=== PATIENT | female | born 1950 | race Caucasian/White ===

== ENCOUNTER 2016-12-01 11:01 | Inpatient (IN) | payer BC ==
[~2016-12-01] VITALS: Ht 162.6 cm; Wt 58.5 kg
[2016-12-01 11:26] VITALS: BP 108/62
[2016-12-01] MEDS ORDERED: LEVETIRACETAM500 MG ORAL (11:27)
[2016-12-01] MEDS ORDERED: BUPROPION XL150 MG ORAL (11:27)
[2016-12-01] MEDS ORDERED: GABAPENTIN600 MG ORAL (11:27)
[2016-12-01] MEDS ORDERED: SYNTHROID75 MCG ORAL (11:27)
[2016-12-01] MEDS ORDERED: AMLODIPINE BESYL5 MG ORAL (11:27)
[2016-12-01] MEDS ORDERED: ACYCLOVIR400 MG ORAL (11:27)
[2016-12-01] MEDS ORDERED: ZOLPIDEM TARTRA10 MG ORAL (11:27)
[2016-12-01] MEDS ORDERED: cefTRIAXone 2 GM in NS 110 ML IVPB ONE (11:30)
[2016-12-01] MEDS ORDERED: Vancomycin 1 GM in D5W 275 ML IVPB ONE (11:30)
[2016-12-01] MEDS ORDERED: Vancomycin 1 GM in NS 275 ML IV ONE (11:30)
[2016-12-01] MEDS ORDERED: Unasyn 3gm Inj IVPB ONE (11:30)
[2016-12-01 11:41] LABS: MEAN CORPUSCULAR HEMOGLOBIN 26.3 PG (27.0-31.0); MEAN CORPUSCULAR HGB CONC 31.7 G/DL (32.0-36.0); MEAN CORPUSCULAR VOLUME 83 FL (80-99); MEAN PLATELET VOLUME 6.2 FL (6.5-10.1); PLATELET COUNT 167 K/UL (150-450); RED BLOOD COUNT 4.32 M/UL (4.20-5.40); RED CELL DISTRIBUTION WIDTH 15.1 % (11.6-14.8)
[2016-12-01 11:50] LABS: WHITE BLOOD COUNT 0.9 K/UL (4.8-10.8)
[2016-12-01 11:53] LABS: TROPONIN I < 0.30 ng/mL (<=0.30)
[2016-12-01 11:56] LABS: ALANINE AMINOTRANSFERASE 11 U/L (3-33); ALBUMIN/GLOBULIN RATIO 1.6 (1.0-2.7); ANION GAP 14 (5-15); ASPARTATE AMINO TRANSFERASE 23 U/L (5-40); CALCIUM 8.6 mg/dL (8.6-10.2); CARBON DIOXIDE 23 mEQ/L (20-30); CHLORIDE 98 mEQ/L (98-107); CREATININE 0.8 mg/dL (0.5-0.9); GLOMERULAR FILTRATION RATE > 60 mL/min (>60); HEMOLYSIS 9; POTASSIUM 2.9 mEQ/L (3.4-4.9); SODIUM 135 mEQ/L (135-145); TOTAL PROTEIN 5.9 g/dL (6.6-8.7)
[2016-12-01] MEDS ORDERED: KCl 10% 20 mEq/15ml liquid ORAL ONE (12:00)
[2016-12-01] MEDS ORDERED: Meropenem 1 GM in NS 110 ML IVPB ONE (12:00)
[2016-12-01 12:07] LABS: CKMB < 1.5 ng/mL (< 3.8)
[2016-12-01] MEDS ORDERED: Meropenem 1gm vial ONE (12:07)
--- NOTE | 2016-12-01 12:08 | Emergency Room Report ---
History of Present Illness General Chief Complaint: Seizure Source: Patient Present Illness HPI 66YOF BIBEMS for seizure at home Aborted prior to EMS arrival Not given any meds by EMS Missed AM dose of Keppra today. Takes 1250mg BID "Big seizure" per daughter Per daughter, patient been feeling "weird" and "not normal" for 2 weeks Has been "back and forth to doctor" - was told "she has depression." Started on Welbutrin yesterday. Concern from Neurologist that it would "lower seizure threshold" but given anyway. Finished chem for B Cell lymphoma ?2-3 months prior. Daughter states bathroom and patient covered in feces this morning. Patient usually lives by herself, cares for herself. Went to work 2 days ago. Also on acyclovir for herpes of lips, eyes Allergies: Coded Allergies: No Known Allergies (Unverified , 12/01/16) Patient History Past Medical History: seizures, other - malignancy Past Surgical History: none Pertinent Family History: none Social History: Denies: alcohol use, drug use, smoking Now: No Immunizations: UTD Reviewed Nursing Documentation: PMH: Agreed, PSxH: Agreed Nursing Documentation-PMH Hx Cancer: Yes - Lyphoma; completed chemo two months ago History Of Psychiatric Problem: Yes - Depression Hx Seizures: Yes Review of Systems All Other Systems: negative except mentioned in HPI Physical Exam Vital Signs Date Time Temp Pulse Resp B/P Pulse Ox O2 Delivery O2 Flow Rate FiO2 12/01/16 10:46 103.1 75 16 108/62 99 Room Air Sp02 EP Interpretation: reviewed, abnormal General Appearance: normal inspection, well appearing, no apparent distress, alert, GCS 15, non-toxic, cachetic Head: normocephalic, atraumatic Eyes: bilateral eye EOMI, bilateral eye PERRL ENT: normal ENT inspection, hearing grossly normal, normal voice, other - Right side of neck cellulitis Neck: normal inspection, full range of motion, supple, no bony tend Respiratory: normal inspection, lungs clear, normal breath sounds, no respiratory distress, no retraction, no wheezing Cardiovascular #1: regular rate, rhythm, no edema Gastrointestinal: normal inspection, normal bowel sounds, non tender, soft, no guarding, no hernia Genitourinary: no CVA tenderness Musculoskeletal: normal inspection, back normal, normal range of motion, Parvez' s Sign negative Neurologic: normal inspection, alert, oriented x3, responsive, underwriting assistant III-XII nml as tested, motor strength/tone normal, speech normal Psychiatric: normal inspection, judgement/insight normal, mood/affect normal Skin: normal inspection, normal color, no rash Medical Decision Making Diagnostic Impression: Primary Impression: Seizure disorder Additional Impressions: Neutropenic fever Cellulitis, neck Hypokalemia ER Course Seizure disorder - Known - Missed AM dose of Keppra today - was given in ED - Witnessed seizure today. ?d/t missed dose vs neutropenic fever - No additional seizures in ED Neutropenic fever - Completed chemo 2-3 months prior for B cell lymphoma - Per IDSA reccs, meropenem 1gram given in ED - No meningismus - no focal neuro deficits - CXR: No PNA - Small cellulitis right neck from insect bite since last night. Unlikely source of infection. Hypokalemia - Repleted in ED Placed in isolation Endorsed to Dr Oakes for panel/tele admit EKG Diagnostic Results Rate: tachycardiac Rhythm: NSR ST Segments: no acute changes ASA given to the pt in ED: No Rhythm Strip Diag. Results EP Interpretation: yes Rate: 104 Rhythm: NSR, no PVC's, no ectopy Chest X-Ray Diagnostic Results Chest X-Ray Diagnostic Results : Chest X-Ray Ordered: Yes # of Views/Limited/Complete: 1 View Indication: Chest Pain EP Interpretation: Yes Interpretation: no consolidation, no effusion, no pneumothorax, no acute cardiopulmonary disease Impression: No acute disease Interpreting ER Provider: Electronically signed by Dr Mullins Last Vital Signs Date Time Temp Pulse Resp B/P Pulse Ox O2 Delivery O2 Flow Rate FiO2 12/01/16 11:26 103.1 102 16 108/62 99 Room Air Status: improved Disposition: ADMITTED INPATIENT Condition: Serious Referrals: NOT CHOSEN RUPA/,REFERRING (PCP) LA NENA MULLINS M.D. Dec 01, 2016 12:08
[2016-12-01 12:10] LABS: ANISOCYTOSIS 1+; BAND NEUTROPHILS % (MANUAL) 0 % (0-8); BASOPHILS % (MANUAL) 0 % (0-2); EOSINOPHILS % (MANUAL) 0 % (0-3); HYPOCHROMASIA 1+; LYMPHOCYTES % (MANUAL) 86 % (20-45); NEUTROPHILS % (MANUAL) 4 % (45-75); PLATELET ESTIMATE ADEQUATE; PLATELET MORPHOLOGY NORMAL; TOTAL CELLS COUNTED 100
[2016-12-01] MEDS ORDERED: Zolpidem 5mg tab ORAL PRN (13:30)
[2016-12-01] MEDS ORDERED: LORazepam Inj 2mg/ml 1ml IV PRN (13:30)
[2016-12-01] MEDS ORDERED: Piperacillin/Tazobactam 3.375 GM in D5W 110 ML IVPB SCH (14:00)
[2016-12-01 14:09] VITALS: BP 110/65
[2016-12-01] MEDS ORDERED: TBO-Filgrastim 300 mcg/0.5ml SQ SCH (15:00)
[2016-12-01] MEDS ORDERED: Zosyn 4.5gm q8h **Extended infusion IVPB SCH ×2 (15:00)
[2016-12-01] MEDS: Vancomycin 1250mg/D5W 250ml IVPB SCH (15:13)
[2016-12-01 16:00] VITALS: BP 115/68
[2016-12-01] MEDS: Zosyn 4.5gm q8h **Extended infusion IVPB SCH ×2 (18:24)
[2016-12-01 20:00] VITALS: BP 120/74
--- NOTE | 2016-12-01 21:17 | History and Physical Report ---
DATE OF ADMISSION: 12/01/2016 CHIEF COMPLAINT: Seizures and neutropenic fever. HISTORY OF PRESENT ILLNESS: The patient is a very pleasant 66-year-old female. She has a prior history of breast and large B-cell lymphoma. Most recent chemo was completed in August for her lymphoma. She also has a history of seizure disorder and hypothyroidism as well as a recent history of HSV on the lips. She was brought in by family members after she had a seizure this morning. According to family members, she has been very weak for the last several days. She apparently saw a psychiatrist and started on Wellbutrin. She was late taking her Keppra this morning and had a seizure. On evaluation in the emergency room, the patient was noted to be febrile to 103 degrees. She was also noted to be neutropenic. She had a potassium of 2.9. She has been pancultured and started on broad-spectrum antibiotic therapy and is now admitted for further inpatient evaluation and care. The patient denies any cough. She has had no diarrhea. PAST MEDICAL HISTORY: As above. PAST SURGICAL HISTORY: Lumpectomy and hysterectomy. MEDICATIONS: Reconciled and reviewed. ALLERGIES: None. FAMILY HISTORY: Significant for history of pancreatic cancer, coronary artery disease, chronic kidney disease, diabetes and lymphoma. REVIEW OF SYSTEMS: General: Positive fevers. No chills. HEENT: No headaches or visual changes. Cardiopulmonary: Positive right lower chest pain. No shortness of breath. Gastrointestinal: No nausea or vomiting. Genitourinary: No urgency or frequency. Musculoskeletal: No joint pain or swelling. Neurologic: Positive history of seizures. PHYSICAL EXAMINATION: VITAL SIGNS: Temperature initially was 103.1 degrees, pulse of 102, and respirations 16. GENERAL: The patient is well-developed female in no apparent distress. He is awake, alert, and oriented x4. HEENT: Pupils are equal, round, and reactive to light. Oropharynx is clear. There is a crusting lesion on the lower lip as well as a small blister underneath the neck. There is a small amount of erythema and warmth. NECK: Supple. HEART: Regular rate and rhythm. LUNGS: Clear. ABDOMEN: Soft, nontender and nondistended. EXTREMITIES: No clubbing, cyanosis or edema. LABORATORY AND DIAGNOSTIC DATA: Sodium 135, potassium 2.9, chloride 98, bicarbonate 23, BUN 22, and creatinine 0.8. White count was 0.9, hemoglobin 11 and hematocrit 35, and neutrophils were 400. Chest x-ray was reported as clear. ASSESSMENT: This is a pleasant female admitted with neutropenic fevers and seizures. Seizures may be related to recent starting of Wellbutrin. 1. Neutropenic fevers. 2. Herpes simplex virus on the lips, questionable lesion on the neck versus cellulitis. 3. Dehydration. 4. Hypokalemia. 5. Hypothyroidism. 6. Prior history of breast cancer. PLAN: 1. Resume Keppra. 2. Ativan as needed. 3. Aggressive hydration. 4. Broad-spectrum antibiotic therapy. 5. Followup cultures. 6. ID consultation. 7. Hematology/Oncology consultations. 8. Neurology consultation will be obtained. Maynor Oakes M.D. DR: LIZA JOB#: [id number] CC:
[2016-12-02 00:09] VITALS: BP 126/72
[2016-12-02] MEDS: Zosyn 4.5gm q8h **Extended infusion IVPB SCH ×6 (02:23→18:00)
[2016-12-02] MEDS ORDERED: Zolpidem 5mg tab ORAL ONE ×2 (03:15→23:30)
[2016-12-02 04:30] VITALS: BP 119/74
[2016-12-02 08:03] VITALS: BP 119/73
--- NOTE | 2016-12-02 08:07 | General Progress Note ---
Assessment/Plan Problem List: (1) Hypokalemia ICD Codes: E87.6 - Hypokalemia SNOMED: 86263451 (2) Seizure disorder ICD Codes: G40.909 - Epilepsy, unspecified, not intractable, without status epilepticus SNOMED: 992527667 (3) Cellulitis, neck ICD Codes: L03.221 - Cellulitis of neck SNOMED: 72634642 (4) Neutropenic fever ICD Codes: D70.9 - Neutropenia, unspecified; R50.81 - Fever presenting with conditions classified elsewhere SNOMED: 987344371 Assessment/Plan iv abx follow up cultures ID and optho called ct head and neck- r/o abscess sinusitis neuopgen sz rx neuro eval called Subjective ROS Limited/Unobtainable: No Constitutional: Reports: fever, malaise, weakness HEENT: Reports: no symptoms Cardiovascular: Reports: no symptoms Respiratory: Reports: no symptoms Gastrointestinal/Abdominal: Reports: no symptoms Genitourinary: Reports: no symptoms Neurologic/Psychiatric: Reports: seizure Endocrine: Reports: no symptoms Hematologic/Lymphatic: Reports: anemia Allergies: Coded Allergies: No Known Allergies (Unverified , 12/01/16) All Systems: reviewed and negative except above Subjective no events. c/o neck pain. ?right facial and neck swelling. dtr at the bedside Objective Last 24 Hour Vital Signs Date Time Temp Pulse Resp B/P Pulse Ox O2 Delivery O2 Flow Rate FiO2 12/02/16 04:30 97.0 97 20 119/74 97 Room Air 12/02/16 04:00 100 12/02/16 00:09 98.0 88 20 126/72 99 Room Air 12/02/16 00:00 83 12/01/16 20:00 85 12/01/16 20:00 98.0 86 20 120/74 98 Room Air 12/01/16 16:00 96.8 84 18 115/68 95 Room Air 12/01/16 16:00 80 12/01/16 14:10 97.8 82 16 110/65 100 Room Air 12/01/16 14:09 97.8 82 16 110/65 100 Room Air 12/01/16 12:51 97.8 12/01/16 11:26 103.1 102 16 108/62 99 Room Air 12/01/16 10:51 75 16 Room Air 12/01/16 10:46 103.1 75 16 108/62 99 Room Air Intake and Output 12/01/16 12/02/16 19:00 07:00 Intake Total 678.334 ml Balance 678.334 ml Intake Oral 120 ml IV Total 558.334 ml # Voids 2 1 Laboratory Tests 12/01/16 11:00: White Blood Count 0.9*L, Red Blood Count 4.32, Hemoglobin 11.3L, Hematocrit 35.8L, Mean Corpuscular Volume 83, Mean Corpuscular Hemoglobin 26.3L, Mean Corpuscular Hemoglobin Concent 31.7L, Red Cell Distribution Width 15.1H, Platelet Count 167, Mean Platelet Volume 6.2L, Neutrophils (%) (Auto) , Lymphocytes (%) (Auto) , Monocytes (%) (Auto) , Eosinophils (%) (Auto) , Basophils (%) (Auto) , Differential Total Cells Counted 100, Neutrophils % ( Manual) 4L, Lymphocytes % (Manual) 86H, Monocytes % (Manual) 10, Eosinophils % ( Manual) 0, Basophils % (Manual) 0, Band Neutrophils 0, Platelet Estimate Adequate, Platelet Morphology Normal, Hypochromasia 1+, Anisocytosis 1+, Sodium Level 135, Potassium Level 2.9L, Chloride Level 98, Carbon Dioxide Level 23, Anion Gap 14, Blood Urea Nitrogen 22, Creatinine 0.8, Estimat Glomerular Filtration Rate > 60, Glucose Level 153H, Lactic Acid Level 1.60, Calcium Level 8.6, Total Bilirubin 0.6, Aspartate Amino Transf (AST/SGOT) 23, Alanine Aminotransferase (ALT/SGPT) 11, Alkaline Phosphatase 55, Total Creatine Kinase 211H, Creatine Kinase MB < 1.5, Creatine Kinase MB Relative Index , Troponin I < 0.30, Total Protein 5.9L, Albumin 3.7, Globulin 2.2, Albumin/Globulin Ratio 1.6 Height (Feet): 5 Height (Inches): 4.00 Weight (Pounds): 129 General Appearance: WD/WN, alert EENT: other - left Neck: tenderness Cardiovascular: normal rate, regular rhythm Respiratory/Chest: chest wall non-tender, lungs clear, normal breath sounds, no respiratory distress Abdomen: normal bowel sounds, non tender, soft, no organomegaly Edema: no edema noted Arm (L), no edema noted Arm (R), no edema noted Leg (L), no edema noted Leg (R), no edema noted Pedal (L), no edema noted Pedal (R), no edema noted Generalized Neurologic: alert, oriented x 3, responsive ALAN FAUSTIN Dec 02, 2016 08:07
[2016-12-02] MEDS ORDERED: D5W IV SCH (10:00)
[2016-12-02] MEDS ORDERED: ACYCLOVIR IV SCH (10:00)
[2016-12-02 10:25] LABS: MEAN CORPUSCULAR HEMOGLOBIN 27.5 PG (27.0-31.0); MEAN CORPUSCULAR HGB CONC 33.1 G/DL (32.0-36.0); MEAN CORPUSCULAR VOLUME 83 FL (80-99); MEAN PLATELET VOLUME 6.1 FL (6.5-10.1); PLATELET COUNT 168 K/UL (150-450); RED CELL DISTRIBUTION WIDTH 14.9 % (11.6-14.8)
[2016-12-02 11:13] LABS: ALANINE AMINOTRANSFERASE 14 U/L (3-33); ALBUMIN/GLOBULIN RATIO 1.4 (1.0-2.7); ANION GAP 12 (5-15); ASPARTATE AMINO TRANSFERASE 21 U/L (5-40); CALCIUM 8.3 mg/dL (8.6-10.2); CARBON DIOXIDE 22 mEQ/L (20-30); CHLORIDE 102 mEQ/L (98-107); CREATININE 0.8 mg/dL (0.5-0.9); GLOMERULAR FILTRATION RATE > 60 mL/min (>60); HEMOLYSIS 3; POTASSIUM 3.2 mEQ/L (3.4-4.9); SODIUM 136 mEQ/L (135-145); TOTAL PROTEIN 5.7 g/dL (6.6-8.7)
[2016-12-02 11:33] LABS: ANISOCYTOSIS 1+; BAND NEUTROPHILS % (MANUAL) 0 % (0-8); BASOPHILS % (MANUAL) 0 % (0-2); EOSINOPHILS % (MANUAL) 1 % (0-3); HYPOCHROMASIA 1+; LYMPHOCYTES % (MANUAL) 80 % (20-45); NEUTROPHILS % (MANUAL) 7 % (45-75); PLATELET ESTIMATE ADEQUATE; PLATELET MORPHOLOGY NORMAL; TOTAL CELLS COUNTED 100
[2016-12-02 11:34] VITALS: BP 102/65
--- NOTE | 2016-12-02 12:16 | Diagnostic Imaging Report ---
Indication: SOB Technique: One view of the chest Comparison: none Findings: Lungs and pleural spaces are clear. The heart size is upper limits normal. There are bilateral axillary surgical clips. Impression: No acute process
[2016-12-02] MEDS: Acyclovir 200mg Cap ORAL SCH ×2 (13:55→21:36)
[2016-12-02] MEDS: Fluconazole 100mg tab ORAL SCH (13:55)
--- NOTE | 2016-12-02 14:31 | Consultation ---
DATE OF CONSULTATION: 12/02/2016 INFECTIOUS DISEASE CONSULTATION REFERRING PHYSICIAN: Maynor Oakes M.D. REASON FOR CONSULTATION: Neutropenic fever. HISTORY OF PRESENTING ILLNESS: This is a 66-year-old lady with history of lymphoma, breast cancer, status post chemotherapy, radiation therapy, and lumpectomy, who comes in with seizures. She has a prior history of seizure disorder. She was also noticed to have neutropenic fevers and an Infectious Diseases consultation has been obtained for antibiotics. PAST MEDICAL HISTORY: 1. History of breast cancer, status post lumpectomy. 2. History of large cell lymphoma, status post chemotherapy and radiation therapy. 3. History of hysterectomy. 4. History of seizures. SOCIAL HISTORY: She does not smoke, drink, or use drugs. FAMILY HISTORY: Positive for lymphoma in her mother. Pancreatic cancer in her grandmother. Coronary artery disease in her father. REVIEW OF SYSTEMS: Respiratory: She had fever and chills. No cough. No shortness of breath or chest pain. Cardiac: No chest pain. No palpitations. No dizziness. No syncope. Gastrointestinal: No nausea. No vomiting. No abdominal pain. No diarrhea. Musculoskeletal: She had seizures. MEDICATIONS: As an inpatient, she is on: 1. Ambien. 2. Granix. 3. Acyclovir IV. 4. Amlodipine. 5. Protonix. 6. Levothyroxine. 7. Keppra. 8. Gabapentin. 9. Zosyn. 10. IV vancomycin. 11. Ativan. ALLERGIES: No known drug allergies. PHYSICAL EXAMINATION: VITAL SIGNS: Temperature of 97.2, T-max of 103.1, pulse of 98, respiratory rate of 18, blood pressure 119/97, and O2 saturation of 98%. HEENT: Pupils equally reactive to light and accommodation. Mouth, thrush noted with hyperpigmented lesion on the lower lip. NECK: Supple. No adenopathy. No JVD. CARDIOVASCULAR: Regular rate and rhythm. No murmurs. LUNGS: Clear to auscultation bilaterally. No crackles. No wheezes. ABDOMEN: Soft and nontender. No organomegaly. EXTREMITIES: No cyanosis, no clubbing, no edema. LABORATORY AND DIAGNOSTIC DATA: White count of 1, hemoglobin 10.7, hematocrit 32.4, MCV 83, and platelet count of 168,000. Sodium 136, potassium 3.2, chloride 102, bicarb 22, BUN 21, creatinine 0.8, glucose 144, and calcium 8.3. Total bilirubin 0.5. AST 21, ALT 14, and alkaline phosphatase 50. Total protein 5.7. Albumin 3.4. CK of 211. CK-MB of less than 1.5. Troponin less than 0.3. Her chest x-ray showed no consolidation. ASSESSMENT: This is a 66-year-old lady with history of breast cancer and lymphoma, who comes in with. 1. Neutropenic fever. We would like to rule out sepsis as a possibility. 2. History of seizures. 3. We would like to rule out urinary tract infection as a possibility. 4. Thrush. 5. Herpes of the lip. PLAN: 1. We will follow up on blood cultures. 2. We will order urine cultures. 3. We will continue vancomycin and Zosyn. 4. We will stop the IV acyclovir and change to p.o. acyclovir. 5. We will start the patient on fluconazole. 6. We will follow up cultures and adjust antibiotics accordingly. I would like to thank, Dr. Oakes, for this consultation. Dino Perales M.D. DR: YOUSUF JOB#: [id number] CC: Maynor Oakes M.D.
[2016-12-02] MEDS: Vancomycin 1250mg/D5W 250ml IVPB SCH (15:00)
[2016-12-02 16:15] VITALS: BP 114/74
[2016-12-02] MEDS ORDERED: NS 275ml ONE (16:26)
[2016-12-02] MEDS ORDERED: Tubing IV Secondary IV ONE (16:26)
--- NOTE | 2016-12-02 16:55 | Diagnostic Imaging Report ---
Indication: Headaches. History breast carcinoma and mastectomy Technique: sagittal T1 fast spin echo, axial T1 and T2 FLAIR PROPELLER, axial T2 FS PROPELLER, T2* GRE, axial diffusion weighted images, post contrast axial and coronal T1 FLAIR PROPELLER images. ADC and exponential ADC maps generated Comparison: None Findings: Vascular flow voids are preserved. The distal internal carotid arteries are ectatic.. No abnormal areas of restricted diffusion to suggest acute infarction. No acute hemorrhage or edema. No mass effect nor midline shift. No abnormal contrast enhancement. There is mild age-related enlargement of the ventricles and extra axial CSF spaces. There is calvarial hyperostosis.. There is ethmoid sinus disease bilaterally. Impression: Mild age-related changes. Negative for acute intracranial bleed, mass effect, infarct, or contrast enhancing lesion
--- NOTE | 2016-12-02 17:06 | Diagnostic Imaging Report ---
Indication: ABSCESS Technique: IV administration nonionic contrast Spiral acquisitions obtained through the neck Multiplanar reconstructions were generated. Total dose length product 425 mGycm. CTDIvol(s) 17, 48, 8 mGy. Radiation dose was minimized using automated exposure control Comparison: None Findings: There is bilateral maxillary sinus disease. Streak artifact from dental amalgam obscures much of the oropharynx, as well as within the facial soft tissues at this level.. No definite nasopharyngeal, oropharyngeal abnormality demonstrated. Unremarkable hypopharynx. Unremarkable larynx and trachea. Bilateral internal jugular veins are patent. In the visualized portions of the face and neck, and no significant soft tissue edema, mass, or abscess demonstrated. A few surgical clips are seen in the right side of the neck. The parotid glands appear unremarkable. The submandibular glands are unusually small. No cervical mass or adenopathy demonstrated. No supraclavicular mass or adenopathy. Some scarring is seen in the left lung apex. The aorta is somewhat ectatic and tortuous. Great neck vessels are also a somewhat tortuous and ectatic. The bones are unremarkable. Impression: No definite acute or significant abnormality. No findings to explain stated clinical history right neck and facial swelling Sinus disease Evidence of prior right neck surgery to correlate with surgical history Unusually small submandibular glands. Significance uncertain. The CT scanner at [facility] is accredited by the [employer] and the scans are performed using protocols designed to limit radiation exposure to as low as reasonably achievable to attain images of sufficient resolution adequate for diagnostic evaluation.
[2016-12-02 20:00] VITALS: BP 115/70
[2016-12-02] MEDS ORDERED: Zolpidem 5mg tab ORAL PRN (21:00)
[2016-12-02] MEDS ORDERED: TBO-Filgrastim 300 mcg/0.5ml SQ SCH (21:00)
[2016-12-02 21:55] LABS: APPEARANCE,URINE CLEAR; KETONES,URINE NEGATIVE (NEGATIVE); LEUKOCYTE ESTERASE ,URINE NEGATIVE (NEGATIVE); NITRITE,URINE NEGATIVE (NEGATIVE); PH,URINE 8 (4.5-8.0); PROTEIN,URINE 2+ (NEGATIVE); UROBILINOGEN,URINE NORMAL MG/DL (0.0-1.0)
[2016-12-02 22:05] LABS: BACTERIA,URINE FEW /HPF; RBC,URINE 0-2 /HPF (0 - 2); SQUAMOUS EPITHELIAL CELL,UR FEW /LPF (NONE/OCC); WBC,URINE 0-2 /HPF (0 - 2)
[2016-12-03] VITALS: BP 115/71
[2016-12-03] MEDS: Zosyn 4.5gm q8h **Extended infusion IVPB SCH ×4 (01:55→09:53)
[2016-12-03] MEDS: Acyclovir 200mg Cap ORAL SCH ×2 (06:16→13:45)
[2016-12-03 06:28] LABS: MEAN CORPUSCULAR HEMOGLOBIN 27.1 PG (27.0-31.0); MEAN CORPUSCULAR HGB CONC 32.3 G/DL (32.0-36.0); MEAN CORPUSCULAR VOLUME 84 FL (80-99); MEAN PLATELET VOLUME 6.2 FL (6.5-10.1); PLATELET COUNT 153 K/UL (150-450); RED BLOOD COUNT 3.71 M/UL (4.20-5.40); RED CELL DISTRIBUTION WIDTH 15.5 % (11.6-14.8)
[2016-12-03 07:21] LABS: WHITE BLOOD COUNT 1.1 K/UL (4.8-10.8)
[2016-12-03 08:00] VITALS: BP 120/70
--- NOTE | 2016-12-03 08:42 | General Progress Note ---
Assessment/Plan Problem List: (1) Hypokalemia ICD Codes: E87.6 - Hypokalemia SNOMED: 17115121 (2) Seizure disorder ICD Codes: G40.909 - Epilepsy, unspecified, not intractable, without status epilepticus SNOMED: 783196956 (3) Cellulitis, neck ICD Codes: L03.221 - Cellulitis of neck SNOMED: 74002786 (4) Neutropenic fever ICD Codes: D70.9 - Neutropenia, unspecified; R50.81 - Fever presenting with conditions classified elsewhere SNOMED: 480202780 Status: stable, progressing Assessment/Plan iv abx follow up cultures laxatives neuopgen sz rx neuro eval called on waiting list for bed at [facility] Subjective ROS Limited/Unobtainable: No Constitutional: Reports: malaise, weakness HEENT: Reports: no symptoms Cardiovascular: Reports: no symptoms Respiratory: Reports: no symptoms Gastrointestinal/Abdominal: Reports: poor appetite Genitourinary: Reports: no symptoms Neurologic/Psychiatric: Reports: seizure Endocrine: Reports: no symptoms Hematologic/Lymphatic: Reports: anemia Allergies: Coded Allergies: No Known Allergies (Unverified , 12/01/16) All Systems: reviewed and negative except above Subjective no events. mri brain negative. CT head/neck negative. no szs. weak. Objective Last 24 Hour Vital Signs Date Time Temp Pulse Resp B/P Pulse Ox O2 Delivery O2 Flow Rate FiO2 12/03/16 04:00 90 12/03/16 00:00 97.0 81 20 115/71 95 Room Air 12/03/16 00:00 80 12/02/16 20:00 98.6 94 21 115/70 97 Room Air 12/02/16 20:00 89 12/02/16 16:15 98.4 88 18 114/74 97 Room Air 12/02/16 16:00 88 12/02/16 12:00 105 12/02/16 11:34 100.3 100 18 102/65 96 Room Air Intake and Output 12/02/16 12/03/16 19:00 07:00 Intake Total 1027.5 ml 1082.5 ml Output Total 0 ml Balance 1027.5 ml 1082.5 ml Intake Oral 600 ml IV Total 427.5 ml 1082.5 ml Output Urine Total 0 ml # Voids 2 1 # Bowel Movements 1 Laboratory Tests 12/02/16 10:05: White Blood Count 1.0*L, Red Blood Count 3.90L, Hemoglobin 10.7L, Hematocrit 32.4L, Mean Corpuscular Volume 83, Mean Corpuscular Hemoglobin 27.5, Mean Corpuscular Hemoglobin Concent 33.1, Red Cell Distribution Width 14.9H, Platelet Count 168, Mean Platelet Volume 6.1L, Neutrophils (%) (Auto) , Lymphocytes (%) (Auto) , Monocytes (%) (Auto) , Eosinophils (%) (Auto) , Basophils (%) (Auto) , Differential Total Cells Counted 100, Neutrophils % ( Manual) 7L, Lymphocytes % (Manual) 80H, Monocytes % (Manual) 12H, Eosinophils % (Manual) 1, Basophils % (Manual) 0, Band Neutrophils 0, Platelet Estimate Adequate, Platelet Morphology Normal, Hypochromasia 1+, Anisocytosis 1+, Sodium Level 136, Potassium Level 3.2L, Chloride Level 102, Carbon Dioxide Level 22, Anion Gap 12, Blood Urea Nitrogen 21, Creatinine 0.8, Estimat Glomerular Filtration Rate > 60, Glucose Level 144H, Calcium Level 8.3L, Total Bilirubin 0.5, Aspartate Amino Transf (AST/SGOT) 21, Alanine Aminotransferase (ALT/SGPT) 14, Alkaline Phosphatase 50, Total Protein 5.7L, Albumin 3.4L, Globulin 2.3, Albumin/Globulin Ratio 1.4 12/02/16 20:25: Urine Color Pale yellow, Urine Appearance Clear, Urine pH 8, Urine Specific Sterling 1.010, Urine Protein 2+H, Urine Glucose (UA) Negative, Urine Ketones Negative, Urine Occult Blood 1+H, Urine Nitrite Negative, Urine Bilirubin Negative, Urine Urobilinogen Normal, Urine Leukocyte Esterase Negative, Urine RBC 0-2, Urine WBC 0-2, Urine Squamous Epithelial Cells Few, Urine Bacteria Few 12/03/16 04:35: White Blood Count 1.1*L, Red Blood Count 3.71L, Hemoglobin 10.0L, Hematocrit 31.0L, Mean Corpuscular Volume 84, Mean Corpuscular Hemoglobin 27.1, Mean Corpuscular Hemoglobin Concent 32.3, Red Cell Distribution Width 15.5H, Platelet Count 153, Mean Platelet Volume 6.2L, Neutrophils (%) (Auto) , Lymphocytes (%) (Auto) , Monocytes (%) (Auto) , Eosinophils (%) (Auto) , Basophils (%) (Auto) , Neutrophils % (Manual) [Pending], Lymphocytes % (Manual) [Pending], Platelet Estimate [Pending], Platelet Morphology [Pending] Height (Feet): 5 Height (Inches): 4.00 Weight (Pounds): 129 General Appearance: WD/WN, alert EENT: PERRL/EOMI Neck: supple, other - erythema under chin Cardiovascular: normal rate Respiratory/Chest: chest wall non-tender, lungs clear, normal breath sounds Abdomen: normal bowel sounds, non tender, soft, no organomegaly Edema: no edema noted Arm (L), no edema noted Arm (R), no edema noted Leg (L), no edema noted Leg (R), no edema noted Pedal (L), no edema noted Pedal (R), no edema noted Generalized Neurologic: alert, oriented x 3, responsive ALAN FAUSTIN Dec 03, 2016 08:42
[2016-12-03] MEDS ORDERED: Milk of Magnesia 30ml Ud ORAL PRN (09:00)
[2016-12-03] MEDS ORDERED: Docusate 250mg cap ORAL SCH (09:00)
[2016-12-03] MEDS: Fluconazole 100mg tab ORAL SCH (09:39)
[2016-12-03 10:18] LABS: BASOPHILS % (MANUAL) 1 % (0-2); EOSINOPHILS % (MANUAL) 3 % (0-3); LYMPHOCYTES % (MANUAL) 59 % (20-45); NEUTROPHILS % (MANUAL) 5 % (45-75); TOTAL CELLS COUNTED 100
[2016-12-03 10:20] LABS: BAND NEUTROPHILS % (MANUAL) 0 % (0-8); PLATELET ESTIMATE ADEQUATE; PLATELET MORPHOLOGY NORMAL
[2016-12-03 10:21] LABS: ANISOCYTOSIS 1+; BURR CELLS 1+
--- NOTE | 2016-12-03 11:36 | Infectious Diseases Prog Note ---
Assessment/Plan Assessment/Plan antibiotics : vancomycin iv, zosyn, acyclovir, fluconazole A 1. neck cellulitis 2. breast cancer 3. lymphoma 4. neutropenia 5. fever improving 6. herpes of lip 7. thrush P 1. continue vancomycin iv, zosyn, acyclovir, fluconazole 2. will follow up cultures Subjective Constitutional: Denies: chills, fever Respiratory: Reports: dry cough - decreasing, Denies: shortness of breath Gastrointestinal/Abdominal: Denies: diarrhea, nausea, vomiting Musculoskeletal: Reports: pain Allergies: Coded Allergies: No Known Allergies (Unverified , 12/01/16) Objective Vital Signs Last 24 Hour Vital Signs Date Time Temp Pulse Resp B/P Pulse Ox O2 Delivery O2 Flow Rate FiO2 12/03/16 09:41 120 70/94 12/03/16 08:00 99.7 94 18 120/70 97 Room Air 12/03/16 08:00 96 12/03/16 04:00 90 12/03/16 00:00 97.0 81 20 115/71 95 Room Air 12/03/16 00:00 80 12/02/16 20:00 98.6 94 21 115/70 97 Room Air 12/02/16 20:00 89 12/02/16 16:15 98.4 88 18 114/74 97 Room Air 12/02/16 16:00 88 12/02/16 12:00 105 12/02/16 11:34 100.3 100 18 102/65 96 Room Air Height (Feet): 5 Height (Inches): 4.00 Weight (Pounds): 129 HEENT: other - lower lip hyperpigmented lesion, thrush, neck erythema Respiratory/Chest: lungs clear Cardiovascular: normal rate, regular rhythm, no gallop/murmur Abdomen: soft, non tender Extremities: no edema Microbiology Date/Time Source Procedure Growth Status 12/01/16 11:10 Blood Blood Culture - Preliminary NO GROWTH AFTER 24 HOURS Resulted 12/01/16 11:00 Blood Blood Culture - Preliminary NO GROWTH AFTER 24 HOURS Resulted Laboratory Tests Test 12/02/16 20:25 12/03/16 04:35 Urine Color Pale yellow Urine Appearance Clear Urine pH 8 (4.5-8.0) Urine Specific Midnight 1.010 (1.005-1.035) Urine Protein 2+ (NEGATIVE) H Urine Glucose (UA) Negative (NEGATIVE) Urine Ketones Negative (NEGATIVE) Urine Occult Blood 1+ (NEGATIVE) H Urine Nitrite Negative (NEGATIVE) Urine Bilirubin Negative (NEGATIVE) Urine Urobilinogen Normal MG/DL (0.0-1.0) Urine Leukocyte Esterase Negative (NEGATIVE) Urine RBC 0-2 /HPF (0 - 2) Urine WBC 0-2 /HPF (0 - 2) Urine Squamous Epithelial Cells Few /LPF (NONE/OCC) Urine Bacteria Few /HPF (NONE) White Blood Count 1.1 K/UL (4.8-10.8) *L Red Blood Count 3.71 M/UL (4.20-5.40) L Hemoglobin 10.0 G/DL (12.0-16.0) L Hematocrit 31.0 % (37.0-47.0) L Mean Corpuscular Volume 84 FL (80-99) Mean Corpuscular Hemoglobin 27.1 PG (27.0-31.0) Mean Corpuscular Hemoglobin Concent 32.3 G/DL (32.0-36.0) Red Cell Distribution Width 15.5 % (11.6-14.8) H Platelet Count 153 K/UL (150-450) Mean Platelet Volume 6.2 FL (6.5-10.1) L Neutrophils (%) (Auto) % (45.0-75.0) Lymphocytes (%) (Auto) % (20.0-45.0) Monocytes (%) (Auto) % (1.0-10.0) Eosinophils (%) (Auto) % (0.0-3.0) Basophils (%) (Auto) % (0.0-2.0) Differential Total Cells Counted 100 Neutrophils % (Manual) 5 % (45-75) L Lymphocytes % (Manual) 59 % (20-45) H Monocytes % (Manual) 32 % (1-10) H Eosinophils % (Manual) 3 % (0-3) Basophils % (Manual) 1 % (0-2) Band Neutrophils 0 % (0-8) Platelet Estimate Adequate Platelet Morphology Normal Anisocytosis 1+ Gloria Cells 1+ CINDY MELGAR Dec 03, 2016 11:36
[2016-12-03 12:00] VITALS: BP 121/76
[2016-12-03] MEDS: Vancomycin 1250mg/D5W 250ml IVPB SCH (14:48)
[2016-12-03 16:00] VITALS: BP 123/79
[2016-12-03] MEDS ORDERED: NS 275ml ONE (16:59)
--- NOTE | 2016-12-04 08:48 | Cardiology Report ---
APPROVED REPORT EKG Measurement Heart [id number] Sinus tachycardia Possible Left atrial enlargement Low voltage QRS Borderline ECG
[2016-12-04 10:28] LABS: OTHERS PATHOLOGIST COMMENT
--- NOTE | 2016-12-05 13:02 | Discharge Summary ---
Discharge Summary Hospital Course Date of Admission Dec 01, 2016 at 13:44 Date of Discharge Dec 03, 2016 at 17:00 Admitting Diagnosis Neutropenic Fever HPI Sarah Landon is a 66 year old female who was admitted on Dec 01, 2016 at 13: 44 for Neutropenic Fever Hospital Course [id number] Discharge Discharge Disposition Patient was discharged to Acute Care Facility(02) Discharge Diagnoses: Avril Rodas NP Dec 05, 2016 13:02
--- NOTE | 2016-12-06 01:01 | Discharge Summary 2 SIG ---
DATE OF ADMISSION: 12/01/2016 DATE OF DISCHARGE: 12/03/2016 RETAIL DELIVERY DRIVER: Dino Perales M.D. BRIEF HOSPITAL COURSE: The patient is a 66-year-old female with history of breast and B-cell lymphoma with recent chemotherapy completed in August. She has a history of seizure disorder and hypothyroidism as well as recent history of herpes simplex virus on the lips. She was brought in by family members after she had seizure. According to family member, she had been very weak over the last several days and apparently was seen by a psychiatrist and was started on Wellbutrin. On arrival to ED, she was febrile 103.1. There was no meningismus noted. No focal neurologic deficits. Chest x-ray showed no pneumonia. The potassium was repleted in the ED. EKG was in normal sinus rhythm. Neutrophils were 400. White count was 0.9. She was admitted to telemetry for neutropenic fevers and was placed on seizure precautions. She was continued on anticonvulsants and was given Neupogen. She was started on vancomycin and Zosyn. Intravenous acyclovir was transitioned to p.o. She was also given fluconazole. Blood cultures did not isolate any growth. Urine culture did not isolate any growth. She had a neck CT that showed no acute abnormality with evidence of prior neck surgery. Brain MRI was negative for acute intracranial bleed, mass effect, infarct, or contrast enhancing lesions. She had a cellulitis on the neck and was given IV vancomycin. She was eventually transferred to [facility]. FINAL DIAGNOSES: 1. Neutropenic fever. 2. Seizure disorder with acute exacerbation. 3. Hypokalemia. 4. Cellulitis of the neck. 5. Lymphoma. 6. Herpes of the lip. 7. Oral thrush. Maynor Oakes M.D. I have been assigned to dictate discharge summary on this account and I was not involved in the patient's management. Avril Rodas N.P. DR: HALLEY JOB#: [id number] CC:
== END 2016-12-03 17:00 | disposition short-term general hospital (02) | DRG 809 ==
LOC: EDBD 11:01 → EDBEDREQ 11:16 → EMR 11:26 → EDBEDREQ 12:01 → 2E 13:44
DX: D70.9 Neutropenia, unspecified (principal); L03.221 Cellulitis of neck; B37.0 Candidal stomatitis; C85.90 Non-Hodgkin lymphoma, unspecified, unspecified site; R50.81 Fever presenting with conditions classified elsewhere; G40.909 Epilepsy, unspecified, not intractable, without status epilepticus; E87.6 Hypokalemia; B00.1 Herpesviral vesicular dermatitis; E03.9 Hypothyroidism, unspecified; E86.0 Dehydration; Z85.3 Personal history of malignant neoplasm of breast; Z92.3 Personal history of irradiation
CPT/HCPCS: 36415; 70491; 70553; 71010; 80053; 80299; 81003; 82550; 82553; 83605; 84484; 85007; 85025; 87040; 87086; 93005; A9585; J8499